=== PATIENT | male | born 2005 | race Caucasian/White ===

== ENCOUNTER 2025-07-07 21:00 | Emergency (ER) | payer BC ==
[2025-07-07] MEDS ORDERED: Acetaminophen 500 MG TAB ONE (21:32)
== END 2025-07-07 21:41 | disposition home or self-care (01) ==
LOC: NAV ERS 21:00
DX: T75.4XXA Electrocution, initial encounter (principal); S60.411A Abrasion of left index finger, initial encounter; R51.9 Headache, unspecified; J45.909 Unspecified asthma, uncomplicated; W86.8XXA Exposure to other electric current, initial encounter; Y92.009 Unspecified place in unspecified non-institutional (private) residence as the place of occurrence of the external cause
CPT/HCPCS: 93005; 99283